=== PATIENT | female | born 1950 | race Caucasian/White ===

== ENCOUNTER 2017-07-30 11:29 | Emergency (ER) | payer BC ==
[2017-07-30] MEDS: hydrALAzine 20 MG INJ IV (12:20)
[2017-07-30 12:46] LABS: ADD MAN DIFF? NO
[2017-07-30 12:53] LABS: WHITE BLOOD COUNT 10.6 10^3/ul (4.8-10.8)
[2017-07-30 12:53] LABS: BASOPHIL # 0.1 10^3/ul (0.0-0.1); BASOPHILS % 0.6 % (0.0-2.0); EOSINOPHILS % 0.2 % (0.0-7.0); HEMATOCRIT 42.1 % (37.0-47.0); LYMPHOCYTES # 1.4 10^3/ul (0.8-2.9); LYMPHOCYTES % 13.3 % (15.0-51.0); MEAN CORPUSCULAR HEMOGLOBIN 29.5 pg (29.0-33.0); MEAN CORPUSCULAR HGB CONC 33.3 g/dl (32.0-37.0); MEAN CORPUSCULAR VOLUME 88.6 fl (82.0-101.0); MEAN PLATELET VOLUME 10.4 fl (7.4-10.4); MONOCYTE # 0.5 10^3/ul (0.3-0.9); MONOCYTES % 4.9 % (0.0-11.0); NEUTROPHIL # 8.6 10^3/ul (1.6-7.5); NEUTROPHILS % 80.5 % (39.0-77.0); PLATELET COUNT 332 10^3/UL (140-415); RED BLOOD COUNT 4.75 10^6/ul (4.20-5.40); RED CELL DISTRIBUTION WIDTH 12.8 % (11.5-14.5)
[2017-07-30] MEDS: SOD CHLORIDE 0.9% 1,000 ML IV (13:01)
[2017-07-30 13:17] LABS: ALANINE AMINOTRANSFERASE 26 IU/L (13-69); ALBUMIN 4.4 g/dl (3.3-4.9); ALBUMIN/GLOBULIN RATIO 1.04; ALKALINE PHOSPHATASE 94 IU/L (42-121); ANION GAP 17 (8-16); ASPARTATE AMINO TRANSFERASE 10 IU/L (15-46); BILIRUBIN,INDIRECT 0.3 mg/dl (0-1.1); BILIRUBIN,TOTAL 0.3 mg/dl (0.2-1.3); BLOOD UREA NITROGEN 15 mg/dl (7-20); CALCIUM 10.3 mg/dl (8.4-10.2); CARBON DIOXIDE 24 mmol/L (21-31); CHLORIDE 102 mmol/L (97-110); CREATININE 0.65 mg/dl (0.44-1.00); GLUCOSE 105 mg/dl (70-220); POTASSIUM 3.8 mmol/L (3.5-5.1); SODIUM 139 mmol/L (135-144); TOTAL PROTEIN 8.6 g/dl (6.1-8.1)
[2017-07-30 13:30] LABS: B-TYPE NATRIURETIC PEPTIDE 177 PG/ML (0-125)
[2017-07-30 13:32] LABS: TROPONIN-I < 0.012 ng/ml (0.00-0.12)
[2017-07-30] MEDS: ACETAMINOPHEN 325 MG TAB PO (15:42)
[2017-07-30] MEDS ORDERED: ONDANSETRON 4 MG INJ (17:08)
[2017-07-30] MEDS: ONDANSETRON 4 MG INJ IV (17:14)
== END 2017-07-30 17:24 | disposition home or self-care (01) ==
LOC: E/R 11:29
DX: I10 Essential (primary) hypertension (principal); E11.9 Type 2 diabetes mellitus without complications; E03.9 Hypothyroidism, unspecified; J45.909 Unspecified asthma, uncomplicated; Z79.84 Long term (current) use of oral hypoglycemic drugs
CPT/HCPCS: 70450; 71045; 80053; 83880; 84484; 85025; 96374; 96375; 99285-25